=== PATIENT | male | born 1995 | race African-American/Black ===

== ENCOUNTER → 2016-07-21 | Outpatient (CLI) | payer OTHER ==
[~2016-07-21] MED LIST: CONCERTA36 MG; FLEXERIL10 M1 PO; MOTRIN600 M1 PO; PERCOCET10 PO; XARELTO10 MG PO
--- NOTE | ~2016-07-21 | CR21 ---
[facility] A Service of [facility] & [facility] RADIOLOGY TEXT RESULTS PATIENT: LEANNE SIDDIQI LOCATION: [facility] : 95 UNIT #: [id number] AGE: [address]: Cierra Neumann MD SEX: M ORDER DR: [id number] [facility] [address] [place], [place] [address] [id number] O MR#: [id number] Acc #: [id number] NAME: LEANNE SIDDIQI : 1995 SEX: M STUDY DATE/TIME: 07/21/2016 15:00 UNIT: [facility] ROOM: STUDY DESCRIPTION: CR Ankle Min 3 Views Rt Attending Physician: Cierra Neumann M.D. Referring Physician: Cierra Neumann M.D. Ordering Physician: Cierra Neumann M.D. Primary Care Physician: [facility] MEDICAL IMAGING REPORT This report is preliminary unless electronic signature is present EXAM Right ankle 3 views, 07/21/2016 HISTORY Foot deformity. Progressive pain and swelling with weightbearing. History of congenital clubfoot and multiple prior fractures. FINDINGS 3 views are submitted of the ankle. The ankle proper is unremarkable. Joint space and articular surfaces are preserved. The patient does have congenital appearing abnormalities of t he hindfoot. CONCLUSION Negative ankle. Congenital abnormalities of the hindfoot. Dictated by... Joesph Casarez M.D. THIS IS AN ELECTRONICALLY VERIFIED REPORT Joesph Casarez M.D. at 07/25/2016 5:09 PM MARTHA/emmanuel TD: 07/21/2016 23:54 JOB #: [id number] MEDICAL IMAGING REPORT Page 1 of 1 COPY
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
--- NOTE | ~2016-07-21 | CR20 ---
[facility] A Service of [facility] & [facility] RADIOLOGY TEXT RESULTS PATIENT: LEANNE SIDDIQI LOCATION: [facility] : 95 UNIT #: [id number] AGE: [address]: Cierra Neumann MD SEX: M ORDER DR: [id number] [facility] [address] [place], [place] [address] [id number] O MR#: [id number] Acc #: [id number] NAME: LEANNE SIDDIQI : 1995 SEX: M STUDY DATE/TIME: 07/21/2016 15:01 UNIT: [facility] ROOM: STUDY DESCRIPTION: CR Ankle Min 3 Views Lt Attending Physician: Cierra Neumann M.D. Referring Physician: Cierra Neumann M.D. Ordering Physician: Cierra Neumann M.D. [facility] REPORT This report is preliminary unless electronic signature is present EXAM Left ankle, 3 views. DATE OF EXAM 07/21/2016 HISTORY Congenital clubfoot with ankle pain, 3 views are submitted. Bony elements of the ankle are intact and in normal alignment. Examination shows a malformed tarsal talus and navicular presumably congenital. No fractures or acute findings. 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 Negative ankle. Dictated by... Joesph Casarez M.D. THIS IS AN ELECTRONICALLY VERIFIED REPORT Joesph Casarez M.D. at 07/25/2016 5:09 PM Boyd TD: 07/22/2016 00:13 JOB #: [id number] MEDICAL IMAGING REPORT Page 1 of 1 COPY
== END | disposition home or self-care (01) ==
LOC: CRAD 14:47
DX: Q66.89 Other specified congenital deformities of feet (principal); Q66.6 Other congenital valgus deformities of feet
CPT/HCPCS: 73610; 73630

== ENCOUNTER → 2016-08-23 | Outpatient (CLI) | payer OTHER ==
--- NOTE | ~2016-08-23 | US136 ---
[facility] A Service of [facility] & [facility] RADIOLOGY TEXT RESULTS PATIENT: LEANNE SIDDIQI LOCATION: [facility] : 95 UNIT #: [id number] AGE: [address]: Obie Moreland MD SEX: M ORDER DR: [id number] [facility] [address] [place], [place] [address] [id number] O MR#: [id number] Acc #: [id number] NAME: LEANNE SIDDIQI : 1995 SEX: M STUDY DATE/TIME: 08/23/2016 15:11 UNIT: [facility] ROOM: STUDY DESCRIPTION: US U/L Ext Art [employer] Ltd Bilat Attending Physician: Benedict Moreland M.D. Referring Physician: Benedict Moreland M.D. Ordering Physician: Benedict Moreland M.D. [facility] MED[facility] REPORT This report is preliminary unless electronic signature is present EXAM Bilateral lower extremity BRITTON, 08/23/2016 REASON FOR EXAM Absent pedal pulses. FINDINGS The right brachial pressure is 112, left is 106. Right dorsalis pedis pressure is 137, posterior tibial is 128 for an BRITTON of 1.22 and a first toe pressure of 90 mmHg. Left dorsalis pedis pressure is 144 and posterior tibial is 126 for an BRITTON of 1.13 and first toe pressure of 94 mmHg. Arterial waveforms at the dorsalis pedis and posterior tibial arteries are triphasic bilateral. PVR waveform at the ankle level as well as first toe level appears to be intact and symmetric bilaterally. IMPRESSION No evidence of arterial insufficiency in either the right or the left lower extremity, with adequate perfusion of the first toes. Dictated by... Tiffanie Britton M.D. THIS IS AN ELECTRONICALLY VERIFIED REPORT Tiffanie Britton M.D. at 08/31/2016 11:49 AM ALLEGRAN/lew TD: 08/23/2016 22:57 JOB #: [id number] MEDICAL IMAGING REPORT Page 1 of 1 COPY
--- NOTE | ~2016-08-23 | CT95 ---
[facility] A Service of [facility] RADIOLOGY TEXT RESULTS PATIENT: LEANNE SIDDIQI [facility] : 95 UNIT #: [id number] AGE: [address]: Obie Moreland MD SEX: M ORDER DR: [id number] [facility] [address] [place], [place] [address] [id number] O MR#: [id number] Acc #: [id number] NAME: LEANNE SIDDIQI : 1995 SEX: M STUDY DATE/TIME: 08/23/2016 15:06 UNIT: [place] ROOM: STUDY DESCRIPTION: CT Lower Ext Rt Wo Cont Attending Physician: Benedict Moreland M.D. Referring Physician: Benedict Moreland M.D. Ordering Physician: Benedict Moreland M.D. Primary Care Physician: [facility] IMAGING REPORT This report is preliminary unless electronic signature is present EXAM CT right foot HISTORY Clubfoot surgery age 2. Bilateral foot pain, symptoms worse on the right. TECHNIQUE This CT examination was performed with one or more of the following radiation dose reduction techniques: automatic exposure control, adjustment of mA and/or kV according to patient size, and iterative reconstruction. FINDINGS Thin section axial images performed through the right foot and ankle. Sagittal and coronal reconstructed images reviewed at a workstation. Examination demonstrates subtle deformity of the distal tibia with a smooth curvilinear step off along the medial tibial plafond with some dysmorphic change within the medial malleolus. There is corresponding irregularity of the medial talus. This may represent the sequela of the patient's congenital clubfoot deformity. There is lack of a well-defined angle of Gissane at the subtalar joint. This also may represent a congenital variant. There is a hypoplastic navicular, particularly along the cranial aspect of the navicular bone. The cuboid, cuneiforms and metatarsal bones unremarkable. Visualized ankle tendons unremarkable at CT. Soft tissues appear normal. IMPRESSION 1. Dysmorphic changes within the medial malleolus and medial aspect of the tibial plafond as well as subtle deformity of the medial margin of the talus probably all congenital and related to the patient's congenital clubfoot deformity. Also demonstrated is a hypoplastic navicular particularly along its cranial aspects with absence of a STS. [facility] A Service of [facility] RADIOLOGY TEXT RESULTS PATIENT: LEANNE SIDDIQI LOCATION: [place] : 95 UNIT #: [id number] AGE: [address]: Obie Moreland MD SEX: M ORDER DR: well-defined talonavicular joint. Also suspected mild dysmorphic changes in the subtalar joint, but no evidence of underlying arthrosis. There is absence of a well-defined angle of Gissane. 2. Not mentioned above, there is mild medial subluxation of the talus relative to the distal tibia with probable compensatory overgrowth of the medial margin of the distal fibula. Again this may represent a manifestation of the patient's clubfoot congenital deformity. Dictated by... Maria Luz Willett M.D. THIS IS AN ELECTRONICALLY VERIFIED REPORT Maria Luz Willett M.D. at 08/24/2016 1:57 PM RAHUL/uzma TD: 08/24/2016 09:14 JOB #: [id number] CC: 2 MEDICAL IMAGING REPORT Page 1 of 1 COPY
--- NOTE | ~2016-08-23 | CT92 ---
[facility] A Service of [facility] & [facility] RADIOLOGY TEXT RESULTS PATIENT: LEANNE SIDDIQI LOCATION: [facility] : 95 UNIT #: [id number] AGE: [address]: Obie Moreland MD SEX: M ORDER DR: [id number] [facility] [address] [place], [place] [address] [id number] O MR#: [id number] Acc #: [id number] NAME: LEANNE SIDDIQI : 1995 SEX: M STUDY DATE/TIME: 08/23/2016 15:06 UNIT: [facility] ROOM: STUDY DESCRIPTION: CT Lower Ext Lt Wo Cont Attending Physician: Benedict Moreland M.D. Referring Physician: Benedict Moreland M.D. Ordering Physician: Benedict Moreland M.D. Primary Care Physician: [facility] MEDICAL IMAGING REPORT This report is preliminary unless electronic signature is present EXAM CT left foot and ankle HISTORY 21-year-old male with congenital clubfoot deformity. Persistent foot and ankle pain. COMPARISON Bilateral foot and ankle films 08/15/2016 FINDINGS Thin section axial images performed through the left foot and ankle with multiplanar reconstructed images reviewed at a workstation. Examination demonstrates subtle dysmorphic changes within the distal tibia with mild convolution of the tibial plafond and a sizeable portion of non articulating anterior distal tibia at the ankle joint. Mild medial subluxation of the talus relative to the distal tibia with compensatory overgrowth of the distal fibula along its medial margin. This is similar to the findings on the right ankle. Mild dysmorphic changes noted at the subtalar joint with lack of a well-defined angle of Gissane. The navicular on the left appears relatively normal compared to the right navicular which was hypoplastic. Normal tarsometatarsal joints. Visualized ankle tendons appear normal. The soft tissues unremarkable. IMPRESSION Dysmorphic changes at the ankle and subtalar joints as described above with prominent distal tibial bone which appears non articulating with the talus. There is also mild medial subluxation of the talus relative to the distal tibia with compensatory overgrowth distal fibula medial aspect. Again the changes at the ankle and subtalar joints probably related to patient's congenital clubfoot deformity and represent compensatory change. [facility] A Service of [facility] RADIOLOGY TEXT RESULTS PATIENT: LEANNE SIDDIQI LOCATION: [facility] : 95 UNIT #: [id number] AGE: [address]: Obie Moreland MD SEX: M ORDER DR: No significant arthrosis seen at the ankle and subtalar joint. Dictated by... Maria Luz Willett M.D. THIS IS AN ELECTRONICALLY VERIFIED REPORT Maria Luz Willett M.D. at 08/24/2016 1:57 PM RAHUL/nini TD: 08/24/2016 09:06 JOB #: [id number] MEDICAL IMAGING REPORT Page 1 of 1 COPY
== END | disposition home or self-care (01) ==
LOC: CNIV 14:15
DX: M21.541 Acquired clubfoot, right foot (principal); M21.542 Acquired clubfoot, left foot
CPT/HCPCS: 73700; 93922

== ENCOUNTER 2016-11-01 18:20 | Emergency (ER) | payer OTHER ==
[~2016-11-01 18:20] MED LIST changes: -CONCERTA36 MG; -PERCOCET10 PO; -XARELTO10 MG PO
[2016-11-01 19:52] LABS: URINE APPEARANCE CLEAR; URINE BILIRUBIN NEG (NEG); URINE BLOOD 1+ (NEG); URINE COLOR YELLOW; URINE GLUCOSE NEG (NEG); URINE KETONE NEG (NEG); URINE LEUKOCYTE ESTERASE 3+ (NEG); URINE NITRATE NEG (NEG); URINE PROTEIN NEG (NEG); URINE SPECIFIC GRAVITY 1.012 (1.003-1.035)
[2016-11-01 19:55] LABS: CULTURE INDICATED? YES; URINE BACTERIA AUWI NEG (NEGATIVE); URINE SQUAMOUS EPITHELIAL CELL NONE SEEN /[HPF]; UWBCS1 AUWI 100-200 (0-5)
[2016-11-03] MEDS ORDERED: CONCERTA36 MG (12:56)
[2016-11-03 23:37] LABS: CHLAMYDIA TRACH Not Detected (Not Detected); N GONOR Detected (Not Detected)
== END 2016-11-01 19:47 | disposition home or self-care (01) ==
LOC: CED 18:20 → CFTX 18:20 → CED 19:26 → CFTX 19:26
PROVIDERS: Nurse Practitioner Family
DX: N34.2 Other urethritis (principal); F90.9 Attention-deficit hyperactivity disorder, unspecified type; F17.210 Nicotine dependence, cigarettes, uncomplicated; Z98.890 Other specified postprocedural states
CPT/HCPCS: 81003; 87086; 87491; 87591; 96372; 99283; J0696

== ENCOUNTER 2016-11-15 08:30 | Inpatient (IN) | payer OTHER ==
--- NOTE | ~2016-11-15 | HP ---
Unit #: [id number] #: [id number] Patient: TRICIA SIDDIQI [id number] [address] [place], [place] [address] [id number] I MR#: [id number] NAME: TRICIA SIDDIQI ROOM: [facility] Age: Sex: M Admission Date: 11/15/2016 : 1995 Attending Physician: Benedict Moreland M.D. Primary Care Physician: [facility] HISTORY AND PHYSICAL DATE OF ANTICIPATED ADMISSION/PROCEDURE November 15, 2016 CHIEF COMPLAINT Right foot pain and deformity. HISTORY OF PRESENT ILLNESS The patient is a 21-year-old male with a history of bilateral clubfoot surgery at age [age] at the [facility]. He has had no surgery since. He wore braces as a child but no longer wears orthotics or braces. He now complains of bilateral generalized ankle pain and stiffness, right worse than left. He complains of bilateral foot deformity, right worse than left. Radiographs and examination demonstrate an overcorrected right clubfoot with arthritis of the talonavicular joint and elevation of the first ray. The patient is therefore admitted for right foot triple arthrodesis, first tarsometatarsal fusion, proximal tibial bone graft, Lapidus bunionectomy, and anterior tibial tendon transfer. PAST MEDICAL HISTORY Otherwise unremarkable. CURRENT MEDICATIONS Concerta. PAST SURGICAL HISTORY As noted in History of Present Illness. DRUG ALLERGIES None. SOCIAL HISTORY The patient is a current everyday smoker. He denies alcohol use. He is disabled and does not work. FAMILY HISTORY Asthma. REVIEW OF SYSTEMS Unremarkable. PHYSICAL EXAMINATION VITAL SIGNS: Height 5 feet 5, weight 135 pounds. GENERAL: This is a thin male in no acute distress. HEENT: Pharynx is clear. Unit #: [id number] #: [id number] Patient: TRICIA SIDDIQI NECK: Supple without masses. HEART: Regular sinus rhythm without murmurs or gallops. LUNGS: Clear. ABDOMEN: Soft and nontender without masses or organomegaly. EXTREMITIES: Evaluation of the right foot demonstrates forefoot adduction with second through fifth toe varus. The heel is neutral. Right ankle dorsiflexion 5 degrees and plantar flexion 20 degrees. Subtalar motion is absent. First MTP joint dorsiflexion is -10 degrees and plantar flexion is 40 degrees. The patient has elevation of his first ray. He has a dorsal bunion deformity. There are 35 degrees of fixed forefoot varus. The third dorsalis pedis pulse is not palpated. The right posterior tibial pulse is 1+ over 2. Sensation is normal. Motor exam is normal testing ankle dorsiflexion, plantar flexion, eversion, and inversion. DIAGNOSTIC STUDIES IMAGING: Standing x-rays of the right foot show dysplasia of the lateral aspect of the navicular with flattening of the talar head. There is forefoot adduction. There is elevation of the first ray. Calcaneal pitch is 7 degrees and lateral talar first metatarsal angle is -15 degrees. Medial cuneiform height is 7 mm. Standing x-rays of the left ankle show dysplasia of the distal tibial articular surface but no obvious ankle arthritis. CT scan of the left ankle shows flattening of the talar head. The lateral talar body is impinging on the fibula and the calcaneus is in valgus with impingement against the fibula. There are some dystrophic changes of the ankle and subtalar joint. CT scan of the right ankle demonstrates valgus orientation of the subtalar joint with the calcaneus articulating with almost the entire distal fibula. There is marked dysplasia of the navicular with failure of formation dorsally. The ankle joint appears to be relatively well preserved and is intact without evidence of arthritic change. There is marked loss of formation of the superior half of the navicular. The majority of the navicular appears to have formed plantarly. ADMITTING DIAGNOSES 1. Overcorrected right clubfoot. 2. Dysplasia, right navicular, with talonavicular arthritis. 3. Severe right heel valgus. 4. Right first ray elevatus. PLAN The patient has failed conservative care. He is therefore admitted for right foot triple arthrodesis utilizing proximal tibial bone graft. We may also have to use right medical allograft tricortical iliac crest graft to make up for bone loss from the navicular. We will transfer the anterior tibial tendon more proximally and fuse his first tarsometatarsal joint to correct the first ray elevatus. Finally, we will imbricate the medial capsule, the first MTP joint, and complete a Lapidus bunionectomy. This procedure was described along with the risks of bleeding, infection, nerve damage, need for further surgery in the future, prolonged recovery time, deep venous thrombosis, pulmonary embolism, anesthetic complications, nonunion, malunion, and no guarantee of a normal foot. The patient understands the above risks and agrees to proceed with the treatment plan. He reviewed the operative permit and signed it in our office. Dictated by Benedict Moreland M.D. Unit #: [id number] #: [id number] Patient: TRICIA SIDDIQI RT/gokul TD: 11/14/2016 14:34 JOB #: [id number] HISTORY AND PHYSICAL Page 1 of 1 X Obie Moreland MD X HISTORY AND PHYSICAL
--- NOTE | ~2016-11-15 | DS ---
Unit #: [id number] #: [id number] Patient: TRICIA SIDDIQI [id number] [address] [place], [place] [address] [id number] I MR#: [id number] NAME: TRICIA SIDDIQI ROOM: [facility] Age: 21 Sex: M Admission Date: 11/15/2016 : 1995 Discharge Date: 11/17/2016 Attending Physician: Benedict Moreland M.D. Primary Care Physician: [facility] DISCHARGE SUMMARY CHIEF COMPLAINT Right foot pain and deformity HISTORY OF PRESENT ILLNESS This 21-year-old male has had previous bilateral clubfoot surgery and now has pain and deformity of his right foot secondary to overcorrected club foot. He has a defect in the sinus tarsi with marked heel valgus. He has marked forefoot varus, which is fixed. He is said to respond to conservative care. There is also evidence of dysplasia of the navicular on x-ray and CT scan. He is therefore to undergo triple arthrodesis with first tarsal metatarsal joint fusion to address his dorsal bunion and first ray elevatus. HOSPITAL COURSE The patient was taken to the operating room on the date of admission where he underwent right foot triple arthrodesis and medial column fusion fusing the first tarsal metatarsal joint and naviculocuneiform joint and talonavicular joint. A (1) structural graft to make up for dysplasia of the navicular. There were no operative complications. He had a stable postoperative course. Pain was controlled with IV morphine and oral narcotics. Dressing was changed on the first postoperative day. He was seen by physical therapy and instructed on how to remain nonweightbearing on his affected side. Deep venous thrombosis prophylaxis was achieved with Xarelto. He was ready for discharge on the second postoperative day. FINAL DIAGNOSES 1. Overcorrected right clubfoot. 2. Right fixed forefoot varus. 3. Right first ray elevatus. 4. Right navicular dysplasia. DISPOSITION AND RECOMMENDATIONS The patient is discharged home. He will keep the dressing clean, dry and intact. He will continue ice and elevation. He will be strictly nonweightbearing for three months. DISCHARGE MEDICATIONS The same of his home medications with the addition of Percocet 10/325 one or two p.o. every four hours p.r.n. pain dispense 50 and Xarelto 10 mg p.o. daily for two weeks. FOLLOW UP With me in the office in two weeks for dressing change, removal, application of a cast. Unit #: [id number] #: [id number] Patient: TRICIA SIDDIQI Dictated by.Jim Moreland M.D. RTAllyson/clary TD: 11/17/2016 18:37 JOB #: [id number] DISCHARGE SUMMARY Page 1 of 1 X Obie Moreland MD X DISCHARGE SUMMARY
--- NOTE | ~2016-11-15 | OR ---
Unit #: [id number] #: [id number] Patient: TRICIA SIDDIQI [id number] [address] [place], [place] [address] [id number] MR#: [id number] NAME: TRICIA SIDDIQI ROOM: [facility] Date of Procedure: 11/15/2016 Admission Date: 11/15/2016 Surgeon: Benedict Moreland M.D. : 1995 Attending Physician: Benedict Moreland M.D. Primary Care Physician: [facility]. OPERATIVE REPORT PREOPERATIVE DIAGNOSES 1. Right foot overcorrected clubfoot. 2. Right first ray elevatus. 3. Right talonavicular joint arthritis. 4. Dysplasia, right navicular. 5. Severe right heel valgus. POSTOPERATIVE DIAGNOSES 1. Right foot overcorrected clubfoot. 2. Right first ray elevatus. 3. Right talonavicular joint arthritis. 4. Dysplasia, right navicular. 5. Severe right heel valgus. PROCEDURE PERFORMED 1. Right foot triple arthrodesis (06654). 2. Right naviculocuneiform fusion (28012). 3. Right Lapidus procedure (45772). 4. Transfer of right anterior tibial tendon to medial cuneiform (02479). 5. Right proximal tibial bone graft (95982). [employer] beto Hernandez vessel. ANESTHESIA Popliteal saphenous block and general. INDICATIONS FOR SURGERY This patient is a 21-year-old male, who underwent bilateral clubfoot surgeries as a child. He now has bilateral foot pain, right worse than left. 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 The patient has failed nonoperative care with orthotics and bracing. He is therefore to undergo surgical correction. DESCRIPTION OF PROCEDURE The patient underwent popliteal saphenous block. He was taken to the operating room and placed in supine position and general anesthetic was induced. The right foot was then prepped and draped in usual sterile fashion. Following the time-out procedure, the IV antibiotic protocol was followed. The right leg was then prepped and draped in usual sterile Unit #: [id number] #: [id number] Patient: TRICIA SIDDIQI. The leg was exsanguinated and the thigh tourniquet inflated to 300 mmHg. A lateral longitudinal incision was made over the sinus tarsi. The subcutaneous tissue was divided. The sinus tarsi was opened. The subtalar joint was distracted and found to be very stiff. The power osteotome, curved curettes, and rongeurs were utilized to remove the articular cartilage from both sides of the subtalar joint. The calcaneocuboid joint was then exposed subperiosteally and the cartilage was removed from both sides of the joint using the power osteotome, curved curettes, and rongeurs. The underlying subchondral bone was then feathered with the power osteotome. Medial longitudinal incision was then made from the navicular tuberosity up to the anteromedial talar neck and then extended down across the medial midfoot crossing the midfoot joints and crossing the first metatarsophalangeal joint, the end of the base of the proximal phalanx of the hallux. The anterior tibial tendon was then dissected free and released from its attachment to the first metatarsal and tagged with a 2-0 Vicryl suture. The talonavicular joint was then exposed and the navicular was found to be quite dysplastic laterally. It was displaced plantarly, and the navicular was only wafer thin in its lateral half. The articular cartilage was removed from both sides of the talonavicular joint. It was decided that we had to extend the fusion to the naviculocuneiform joint. Therefore, the power osteotome, curved curettes, and rongeurs were used to remove the articular cartilage from both sides of the naviculocuneiform joint. The underlying subchondral bone was then feathered with the power osteotome. An anterolateral longitudinal incision was made over the proximal tibia. The subcutaneous tissue was divided. The extensor fascia was opened. The lateral proximal tibial cortex was exposed. A 1 x 2 cm cortical window was made with the power osteotome and a large amount of cancellous bone chips and graft was harvested from the proximal tibia. This was then packed into all four fusion sites. The subtalar joint was then reduced, reducing the valgus, and the subtalar joint was fixated with an OrthoHelix 7.0 mm diameter cannulated screw placed from the posterior inferior heel wound to the talar neck. A TaoTaoSou tricortical bone graft was then cut to fit the defect in the superior half of the talonavicular joint. The allograft tricortical graft was impacted into place. The naviculocuneiform joint and the talonavicular joint were then fixated with two crossed OrthoHelix 5.5 mm diameter cannulated screws placed from the medial cuneiform into the talar neck and then from the lateral cuneiform into the talar neck. Excellent fixation was achieved. A 5.5 mm diameter OrthoHelix cannulated screw was then placed across the calcaneocuboid joint from distal to proximal because there was still some residual forefoot varus and a dorsal bunion with 1st ray elevatus, a Lapidus procedure was required. The 1st tarsometatarsal joint was then exposed subperiosteally. The microsagittal saw was then used to remove the articular cartilage from both sides of the first tarsometatarsal joint with care taken to remove slightly more bone plantarly. The underlying subchondral bone was feathered with the power osteotome. The first metatarsophalangeal joint Unit #: [id number] #: [id number] Patient: TRICIA SIDDIQI was then exposed through a medial longitudinal capsular incision. A capsular release was performed laterally and through the plantar aspect of the joint to improve 1st MTP joint dorsiflexion. The first tarsometatarsal joint was then reduced, reducing the intermetatarsal angle and re-establishing weightbearing under the first metatarsal head. This joint was fixated with two OrthoHelix 4.0 mm diameter cannulated screws placed from distal to proximal. The first metatarsophalangeal joint was then imbricated with multiple 2-0 Vicryl [id number] sutures. The OrthoHelix 4.5 mm diameter suture anchor was then screwed into the dorsal aspect of the medial cuneiform. The 2 attached #2 FiberWire sutures were used to repair the anterior tibial tendon back down to the dorsal aspect of the medial cuneiform more proximally. This then achieved less of a pull on the first metatarsal base and allowed reduction of the first metatarsal elevatus. The proximal tibial donor site was then irrigated and packed with Gelfoam. The cortical window was replaced. The deep tissues were closed with 2-0 Vicryl, subcutaneous tissue was closed with 3-0 Vicryl, skin was closed with 3-0 nylon and horizontal mattress sutures. Xeroform gauze, dressing, sponges, Webril, and a posterior fiberglass splint were applied. The patient was then transported to the recovery room in stable condition. ESTIMATED BLOOD LOSS 100 mL. COMPLICATIONS None. SPECIMENS None. TOURNIQUET TIME 2 hours 20 minutes. Dictated by..Mayo Moreland M.D. RTAllyson/anabelll TD: 11/16/2016 13:10 JOB #: [id number] CC: Benedict Moreland M.D. Unit #: [id number] #: [id number] Patient: TRICIA SIDDIQI OPERATIVE REPORT Page 1 of 1 X Obie Moreland MD X PROCEDURE OPERATIVE NOTE
[~2016-11-15 08:30] MED LIST changes: +CONCERTA36 MG
[2016-11-16 02:43] LABS: HEMATOCRIT 32.6 % (38.0-50.0); HEMOGLOBIN 11.1 gm/dL (13.0-16.0)
[2016-11-17 03:55] LABS: HEMATOCRIT 29.9 % (38.0-50.0); HEMOGLOBIN 10.1 gm/dL (13.0-16.0)
[2016-11-17] MEDS ORDERED: PERCOCET10 PO (09:57)
[2016-11-17] MEDS ORDERED: XARELTO10 MG PO (09:58)
== END 2016-11-17 11:54 | disposition home or self-care (01) | DRG 494 ==
LOC: CSUR 08:30 → CPACUOF 08:50 → C4B 08:50 → CSUR 11:00 → C4B 17:05
PROVIDERS: Orthopaedic Surgery
PROC: 0SGH07Z Fusion of Right Tarsal Joint with Autologous Tissue Substitute, Open Approach (ICD-10-PCS; 2016-11-15)
PROC: 0SGH07Z Fusion of Right Tarsal Joint with Autologous Tissue Substitute, Open Approach (ICD-10-PCS; 2016-11-15)
PROC: 0SGF07Z Fusion of Right Ankle Joint with Autologous Tissue Substitute, Open Approach (ICD-10-PCS; 2016-11-15)
PROC: 0LXV0ZZ Transfer Right Foot Tendon, Open Approach (ICD-10-PCS; 2016-11-15)
PROC: 0SGH04Z Fusion of Right Tarsal Joint with Internal Fixation Device, Open Approach (ICD-10-PCS; principal; 2016-11-15 11:00)
PROC: 0QBG0ZZ Excision of Right Tibia, Open Approach (ICD-10-PCS; 2016-11-15 11:00)
PROC: 0SGH04Z Fusion of Right Tarsal Joint with Internal Fixation Device, Open Approach (ICD-10-PCS; 2016-11-15 11:00)
PROC: 0SGH04Z Fusion of Right Tarsal Joint with Internal Fixation Device, Open Approach (ICD-10-PCS; 2016-11-15 11:00)
PROC: 0SGH07Z Fusion of Right Tarsal Joint with Autologous Tissue Substitute, Open Approach (ICD-10-PCS; 2016-11-15 11:00)
DX: Q66.89 Other specified congenital deformities of feet (principal); F17.200 Nicotine dependence, unspecified, uncomplicated; Q74.2 Other congenital malformations of lower limb(s), including pelvic girdle; M19.071 Primary osteoarthritis, right ankle and foot; Z82.5 Family history of asthma and other chronic lower respiratory diseases
CPT/HCPCS: 85014; 85018; 94760; 97116; 97161; 97530; C1713; G8990-GP; G8991-GP; G8992-GP; J0690; J0735; J1885; J2250; J2270; J2405; J2550; J2795; J3010